=== PATIENT | female | born 1985 | race Caucasian/White ===

== ENCOUNTER 2021-10-13 21:39 | Inpatient (IN) | payer MEDICAID ==
[~2021-10-13] VITALS: Ht 167.6 cm; Wt 63.2 kg
[2021-10-14 01:51] VITALS: BP 130/67
[2021-10-14] MEDS: LORazepam 2 MG TABLET PO PRN ×2 (02:17→08:47)
[2021-10-14] MEDS: HALOPERIDOL 5 MG TABLET PO PRN (02:17)
[2021-10-14 02:24] VITALS: BP 130/78
[2021-10-14] MEDS ORDERED: INFLUENZA VIRUS VACCINE QVS 2021-22 (6MO+)/PF 60 MCG/0.5 ML SYRINGE IM. ONE (02:30)
[2021-10-14] MEDS ORDERED: MAG HYDROX/AL HYDROX/SIMETH ES 30 ML SUSPENSION UDCUP PO PRN (07:00)
[2021-10-14] MEDS ORDERED: ALBUTEROL SULFATE HFA 90 MCG/PUFF 8 GM INHALER IH PRN (07:00)
[2021-10-14] MEDS ORDERED: MAGNESIUM HYDROXIDE SUSPENSION 30 ML UDCUP PO PRN (07:00)
[2021-10-14] MEDS ORDERED: ACETAMINOPHEN 325 MG TABLET PO PRN (07:00)
[2021-10-14] MEDS ORDERED: LOPERAMIDE HCL 2 MG CAPSULE PO PRN (07:00)
[2021-10-14] MEDS ORDERED: DOCUSATE SODIUM 100 MG CAPSULE PO PRN (07:00)
[2021-10-14] MEDS ORDERED: PETROLATUM,WHITE 28 GM JELLY TP PRN (07:00)
[2021-10-14] MEDS ORDERED: ONDANSETRON HCL 4 MG TABLET PO PRN (07:00)
[2021-10-14] MEDS ORDERED: GuaiFENesin/D-METHORPHAN [SUGAR-FREE] 200-20MG/10 ML SYRUP UDCUP PO PRN (07:00)
[2021-10-14] MEDS ORDERED: CloNIDine HCL 0.1 MG TABLET PO PRN (07:00)
[2021-10-14 08:16] VITALS: BP 106/66
[2021-10-14] MEDS: OLANZapine 5 MG TABLET PO SCH ×2 (10:20→20:12)
[2021-10-14 16:20] VITALS: BP 128/69
[2021-10-15 04:25] VITALS: BP 116/86
[2021-10-15 08:44] VITALS: BP 108/61
[2021-10-15] MEDS: OLANZapine 5 MG TABLET PO SCH ×2 (08:50→20:04)
[2021-10-15] MEDS: LORazepam 2 MG TABLET PO PRN (12:17)
[2021-10-15] MEDS ORDERED: PETROLATUM,WHITE 28 GM JELLY TP PRN (13:45)
[2021-10-15 16:23] VITALS: BP 122/67
[2021-10-16 03:26] VITALS: BP 112/64
[2021-10-16 08:33] VITALS: BP 119/76
[2021-10-16] MEDS: LORazepam 2 MG TABLET PO PRN (09:07)
[2021-10-16] MEDS: OLANZapine 5 MG TABLET PO SCH ×2 (09:07→21:18)
[2021-10-16 16:23] VITALS: BP 112/60
[2021-10-17 01:11] VITALS: BP 116/64
[2021-10-17 06:56] LABS: BASOPHILS % (AUTO) 0.5 % (0.0-2.0); EOSINOPHILS % (AUTO) 1.1 % (1.0-6.0); HEMATOCRIT 37.3 % (36-46); HEMOGLOBIN 12.4 g/dL (12.0-16.0); LYMPHOCYTES # (AUTO) 1.5 K/uL (1.0-4.8); LYMPHOCYTES % (AUTO) 19.4 % (22.0-44.0); MEAN CORPUSCULAR HEMOGLOBIN 30.8 pg (26.0-34.0); MEAN CORPUSCULAR HGB CONC 33.4 G/dL (31.0-37.0); MEAN CORPUSCULAR VOLUME 92 fL (80-100); MONOCYTES # (AUTO) 0.4 K/uL (0.1-1.0); MONOCYTES % (AUTO) 5.2 % (2.0-9.0); NEUTROPHILS # (AUTO) 5.5 K/uL (1.8-7.7); NEUTROPHILS % (AUTO) 73.8 % (40.0-70.0); PLATELET COUNT (AUTO) 376 K/uL (150-450); RED BLOOD CELL COUNT(AUTO) 4.05 MIL/uL (4.00-5.20); RED CELL DISTRIBUTION WIDTH 13.1 % (11.5-14.5)
[2021-10-17 07:21] LABS: ALANINE AMINOTRANSFERASE 19 U/L (12-78); ALBUMIN 3.1 g/dL (3.4-5.0); ALKALINE PHOSPHATASE 65 U/L (46-116); ANION GAP 4 mmol/L (8-16); ASPARTATE AMINOTRANSFERASE < 5 U/L (15-37); BILIRUBIN,TOTAL 0.2 mg/dL (0.1-1.0); CALCIUM, TOTAL 8.4 mg/dL (8.8-10.5); CARBON DIOXIDE 27 mmol/L (22-29); CHLORIDE 107 mmol/L (98-107); CHOL/HDL RATIO 2.8 (3.9-5.7); CHOLESTEROL 131 mg/dL (131-200); CREATININE 0.68 mg/dL (0.60-1.30); GLOMERULAR FILTR. RATE CALC > 60 mL/min (>60); GLUCOSE,RANDOM 90 mg/dL (70-110); HDL CHOLESTEROL 47 mg/dL (40-60); LDL CHOL (CALC.) 77 mg/dL (0-130); POTASSIUM 4.4 mmol/L (3.5-5.1); SODIUM SERUM 138 mmol/L (136-145); THYROID STIMULATING HORMONE 1.01 uIU/mL (0.36-3.74); TOTAL PROTEIN, SERUM 6.7 g/dL (6.4-8.2); TRIGLYCERIDES 36 mg/dL (15-150); UREA NITROGEN, BLOOD 11 mg/dL (7-18)
[2021-10-17 08:34] VITALS: BP 113/69
[2021-10-17] MEDS: OLANZapine 5 MG TABLET PO SCH ×2 (08:44→20:14)
[2021-10-17] MEDS: NICOTINE 14 MG/24 HOUR PATCH TD PRN (10:05)
[2021-10-17] MEDS: IBUPROFEN 400 MG TABLET PO PRN (16:08)
[2021-10-17 16:35] VITALS: BP 121/87
[2021-10-18 02:13] VITALS: BP 117/74
[2021-10-18] MEDS: OLANZapine 5 MG TABLET PO SCH ×2 (08:14→20:27)
[2021-10-18] MEDS: LORazepam 2 MG TABLET PO PRN ×3 (08:17→20:32)
[2021-10-18 08:25] VITALS: BP 120/66
[2021-10-18] MEDS: IBUPROFEN 400 MG TABLET PO PRN (16:20)
[2021-10-18 16:34] VITALS: BP 113/75
[2021-10-19 00:08] VITALS: BP 108/72
[2021-10-19] MEDS: OLANZapine 5 MG TABLET PO SCH ×2 (08:37→20:26)
[2021-10-19 16:22] VITALS: BP 121/80
[2021-10-19] MEDS: IBUPROFEN 400 MG TABLET PO PRN (20:30)
[2021-10-19] MEDS: ZOLPIDEM TARTRATE 10 MG TABLET PO PRN (20:31)
[2021-10-20 01:26] VITALS: BP 114/68
[2021-10-20 08:20] VITALS: BP 114/76
[2021-10-20] MEDS: OLANZapine 5 MG TABLET PO SCH ×2 (08:34→20:43)
[2021-10-20] MEDS: LORazepam 2 MG TABLET PO PRN ×2 (09:04→16:52)
[2021-10-20 16:19] VITALS: BP 116/67
[2021-10-20] MEDS: ZOLPIDEM TARTRATE 10 MG TABLET PO PRN (20:43)
[2021-10-21 06:05] VITALS: BP 126/69
[2021-10-21] MEDS: LORazepam 2 MG TABLET PO PRN ×2 (08:55→14:16)
[2021-10-21] MEDS: OLANZapine 5 MG TABLET PO SCH ×2 (08:55→21:03)
[2021-10-21 09:15] VITALS: BP 110/85
[2021-10-21] MEDS: IBUPROFEN 400 MG TABLET PO PRN (09:29)
[2021-10-21 16:14] VITALS: BP 118/80
[2021-10-22] VITALS: BP 121/74
[2021-10-22] MEDS: LORazepam 2 MG TABLET PO PRN ×2 (08:56→20:31)
[2021-10-22 08:58] VITALS: BP 118/79
[2021-10-22] MEDS: OLANZapine 5 MG TABLET PO SCH ×2 (09:00→20:31)
[2021-10-22] MEDS: NICOTINE 14 MG/24 HOUR PATCH TD PRN (10:15)
[2021-10-22 16:12] VITALS: BP 129/79
[2021-10-22] MEDS: ZOLPIDEM TARTRATE 10 MG TABLET PO PRN (20:31)
[2021-10-22] MEDS: HALOPERIDOL 5 MG TABLET PO PRN (20:31)
[2021-10-23 05:56] VITALS: BP 108/71
[2021-10-23] MEDS: LORazepam 2 MG TABLET PO PRN (08:44)
[2021-10-23] MEDS: OLANZapine 5 MG TABLET PO SCH ×2 (08:44→21:32)
[2021-10-23] MEDS: HALOPERIDOL 5 MG TABLET PO PRN (08:44)
[2021-10-23 16:15] VITALS: BP 128/65
[2021-10-24 00:42] VITALS: BP 122/76
[2021-10-24 08:11] VITALS: BP 119/68
[2021-10-24] MEDS: LORazepam 2 MG TABLET PO PRN ×2 (08:18→19:22)
[2021-10-24] MEDS: OLANZapine 5 MG TABLET PO SCH ×2 (08:18→20:20)
[2021-10-24] MEDS: HALOPERIDOL 5 MG TABLET PO PRN ×2 (08:18→19:22)
[2021-10-24 16:30] VITALS: BP 115/75
[2021-10-24] MEDS: ZOLPIDEM TARTRATE 10 MG TABLET PO PRN (20:20)
[2021-10-25 00:54] VITALS: BP 112/72
[2021-10-25] MEDS: LORazepam 2 MG TABLET PO PRN (08:33)
[2021-10-25] MEDS: OLANZapine 5 MG TABLET PO SCH ×2 (08:33→20:29)
[2021-10-25 08:39] VITALS: BP 122/74
[2021-10-25 16:23] VITALS: BP 125/62
[2021-10-26 02:00] VITALS: BP 135/65
[2021-10-26] MEDS: OLANZapine 5 MG TABLET PO SCH ×2 (08:11→20:12)
[2021-10-26] MEDS: LORazepam 2 MG TABLET PO PRN ×2 (08:12→15:54)
[2021-10-26 08:23] VITALS: BP 128/77
[2021-10-26] MEDS ORDERED: TUBERCULIN, PURIFIED PROTEIN DERIVATIVE 5 TU/0.1 ML SYRINGE ID ONE (12:00)
[2021-10-26] MEDS: HALOPERIDOL 5 MG TABLET PO PRN (15:54)
[2021-10-26 16:27] VITALS: BP 107/62
[2021-10-26] MEDS: ZOLPIDEM TARTRATE 10 MG TABLET PO PRN (20:11)
[2021-10-27 00:01] VITALS: BP 108/66
[2021-10-27 08:10] VITALS: BP 121/79
[2021-10-27] MEDS: LORazepam 2 MG TABLET PO PRN ×3 (08:26→19:10)
[2021-10-27] MEDS: OLANZapine 5 MG TABLET PO SCH (08:26)
[2021-10-27 09:31] LABS: GLUCOMETER DEV NAME(LOC) POC.BV
[2021-10-27] MEDS: IBUPROFEN 400 MG TABLET PO PRN (13:20)
[2021-10-27 16:13] VITALS: BP 107/65
[2021-10-27] MEDS: HALOPERIDOL 5 MG TABLET PO PRN (19:10)
[2021-10-27] MEDS: OLANZapine 10 MG TABLET PO SCH (20:20)
[2021-10-27] MEDS: ZOLPIDEM TARTRATE 10 MG TABLET PO PRN (20:20)
[2021-10-28 00:16] VITALS: BP 102/68
[2021-10-28 08:11] VITALS: BP 110/69
[2021-10-28] MEDS: OLANZapine 5 MG TABLET PO SCH (08:30)
[2021-10-28] MEDS: HALOPERIDOL 5 MG TABLET PO PRN (08:31)
[2021-10-28] MEDS: LORazepam 2 MG TABLET PO PRN (08:31)
[2021-10-28] MEDS ORDERED: LORazepam 1 MG TABLET PO PRN (14:15)
[2021-10-28 16:04] VITALS: BP 104/65
[2021-10-28] MEDS: ZOLPIDEM TARTRATE 10 MG TABLET PO PRN (20:08)
[2021-10-28] MEDS: OLANZapine 10 MG TABLET PO SCH (20:08)
[2021-10-29 06:25] VITALS: BP 114/75
[2021-10-29] MEDS: HALOPERIDOL 5 MG TABLET PO PRN ×2 (08:02→13:33)
[2021-10-29] MEDS: OLANZapine 5 MG TABLET PO SCH (08:02)
[2021-10-29 08:13] VITALS: BP 103/70
[2021-10-29] MEDS: NICOTINE 14 MG/24 HOUR PATCH TD PRN (13:42)
[2021-10-29] MEDS: LORazepam 2 MG TABLET PO PRN (13:46)
[2021-10-29 16:34] VITALS: BP 122/76
[2021-10-29] MEDS: OLANZapine 10 MG TABLET PO SCH (20:05)
[2021-10-29] MEDS: ZOLPIDEM TARTRATE 10 MG TABLET PO PRN (20:18)
[2021-10-30] VITALS: BP 112/74
[2021-10-30 08:06] VITALS: BP 112/68
[2021-10-30] MEDS: HALOPERIDOL 5 MG TABLET PO PRN (08:25)
[2021-10-30] MEDS: OLANZapine 5 MG TABLET PO SCH (08:25)
[2021-10-30] MEDS: LORazepam 2 MG TABLET PO PRN (15:11)
[2021-10-30 16:06] VITALS: BP 114/67
[2021-10-30] MEDS: OLANZapine 10 MG TABLET PO SCH (21:35)
[2021-10-31 04:00] VITALS: BP 110/66
[2021-10-31] MEDS: OLANZapine 5 MG TABLET PO SCH (08:06)
[2021-10-31] MEDS: HALOPERIDOL 5 MG TABLET PO PRN ×2 (08:06→20:51)
[2021-10-31] MEDS: LORazepam 2 MG TABLET PO PRN ×2 (08:06→17:27)
[2021-10-31 09:20] VITALS: BP 135/73
[2021-10-31 16:03] VITALS: BP 114/69
[2021-10-31 19:41] LABS: GLUCOMETER DEV NAME(LOC) POC.BV
[2021-10-31] MEDS: ZOLPIDEM TARTRATE 10 MG TABLET PO PRN (20:51)
[2021-10-31] MEDS: OLANZapine 10 MG TABLET PO SCH (20:51)
[2021-10-31] MEDS ORDERED: OLAN10 PO (21:13)
[2021-10-31] MEDS ORDERED: OLAN5TAB52 PO (21:13)
[2021-11-01 06:51] VITALS: BP 118/69
[2021-11-01 08:03] VITALS: BP 114/72
[2021-11-01] MEDS: OLANZapine 5 MG TABLET PO SCH (08:18)
[2021-11-01] MEDS: LORazepam 2 MG TABLET PO PRN ×2 (08:18→16:02)
[2021-11-01] MEDS: HALOPERIDOL 5 MG TABLET PO PRN (16:02)
[2021-11-01 16:12] VITALS: BP 109/66
[2021-11-01] MEDS: OLANZapine 10 MG TABLET PO SCH (20:22)
[2021-11-01] MEDS: ZOLPIDEM TARTRATE 10 MG TABLET PO PRN (20:22)
[2021-11-02 02:16] VITALS: BP 104/74
[2021-11-02] MEDS: OLANZapine 5 MG TABLET PO SCH (08:12)
[2021-11-02 08:29] VITALS: BP 118/69
== END 2021-11-02 11:35 | DRG 750 ==
LOC: B3A 10-14 01:02
PROVIDERS: ADMIT Psychiatry & Neurology Psychiatry; ATTEND Psychiatry & Neurology Psychiatry
DX: F25.0 Schizoaffective disorder, bipolar type (principal); R45.851 Suicidal ideations; Z59.00 Homelessness unspecified; F12.10 Cannabis abuse, uncomplicated; Z20.822 Contact with and (suspected) exposure to COVID-19; F15.10 Other stimulant abuse, uncomplicated; K59.00 Constipation, unspecified; Z85.841 Personal history of malignant neoplasm of brain; Z91.51 Personal history of suicidal behavior
CPT/HCPCS: 71046; 80053; 80061; 84439; 84443; 85025; 36415-L1; 36415-TC